=== PATIENT | female | born 1935 | race Caucasian/White ===

== ENCOUNTER 2021-09-04 07:11 | Emergency (ER) | payer OTHER ==
[2021-09-04 07:36] VITALS: TEMP 96.8; BMI 24.3
[2021-09-04] MEDS ORDERED: LIDOCAINE 1%/EPI 1:100000 (20 ML MULTI DOSE VIAL) IJ ONE (08:25)
[2021-09-04] MEDS ORDERED: SILVER NITRATE 75% APPLIC STCK 1 PKT EACH TP ONE (08:34)
[2021-09-04] MEDS ORDERED: SILVER NITRATE 75% APPLIC STCK 1 PKT EACH ONE (08:35)
[2021-09-04 11:20] VITALS: BP 154/70; PULSE 72
== END 2021-09-04 11:20 ==
LOC: JER 07:11
DX: R04.0 Epistaxis (principal)
CPT/HCPCS: 99283-25